=== PATIENT | female | born 1985 | race Caucasian/White ===

== ENCOUNTER 2025-05-16 15:59 | Emergency (ER) | payer OTHER, SELFPAY ==
[2025-05-16 16:01] VITALS: BP 149/78
--- NOTE | 2025-05-16 17:32 | ED.GENMED ---
History of Present Illness
General
Chief Complaint: Abdominal Pain
Source: patient
Exam Limitations: none
Time Seen by Provider: 05/16/25 17:17
Nursing documentation reviewed up to this point in time: agreed with
History of Present Illness
History of Present Illness:
39-year-old female with history of kidney stones presents with left side abdominal pain since this morning. She vomited twice. Denies fever or chills. States pain started in her left flank area.
Past History
Past History
ED Past Medical History: Other (Kidney stone)
ED Past Surgical History: Gynecological
Review of Systems
Review of Systems
Allergies reviewed?: Yes
All Other Systems: ROS reviewed and negative except as documented in HPI and ROS
Phy Exam
Physical Exam
Physical Exam:
GENERAL: Mild distress due to pain A&Ox3.
CONSTITUTIONAL: Afebrile.
EYES: clear, conjunctivae normal
ENMT: moist mucus membranes, Pharynx nl
RESPIRATORY: Regular respirations, nonlabored, lungs clear.
CARDIOVASCULAR: Regular rate and rhythm, no murmurs, no rubs.
GI: Soft, tender left abdomen, normal BS
MUSCULOSKELETAL: Moves with ease. Well perfused.
SKIN: Warm, dry, pink
PSYCH: Normal mood and affect. Well kept, interactive and appropriate
NEUROLOGIC: Awake, alert and oriented. No focal neurological deficits
Course
Orders/Labs/Results
Orders:
Orders
05/16/25 17:18
Test Result ONCE
05/16/25 17:22
Complete Blood Count/With Diff Urgent
Comprehensive Metabolic Panel Urgent
HCG, Serum Qualitative Screen Urgent
Lipase Urgent
05/16/25 17:30
CT Abd/pel Without Iv Or Oral Urgent
Comment:
Reason For Exam: left flank and abd pain
0.9% Sodium Chloride 1000 ml [Nss] 1,000 ml IV BOLUS
05/16/25 18:07
HYDROmorphone [Dilaudid] 0.5 mg IV NOW STA
05/16/25 18:08
Urinalysis Reflex To Culture Urgent
Date Specimen was Collected: 05/16/25
Time Specimen was Collected: 17:24
05/16/25 18:13
Ondansetron Injectable [Zofran] 4 mg IV NOW STA
05/16/25 18:14
Ondansetron Injectable [Zofran] 4 mg .ROUTE .STK-MED ONE
05/16/25 19:31
Ketorolac [Toradol] 15 mg IV NOW STA
Tamsulosin [Flomax] 0.4 mg PO NOW STA
Abnormal Lab Results
05/16/25
17:22
WBC 16.7 H 10^3/uL
(4.8-10.8)
Absolute Neuts (auto) 14.0 H 10^3/uL
(1.4-6.5)
Absolute Monos (auto) 1.0 H 10^3/uL
(0.1-0.6)
Neutrophils % 84.2 H %
(42.2-75.2)
Lymphocytes % 9.1 L %
(20.5-51.1)
Sodium 132 L mmol/L
(135-145)
Carbon Dioxide 20 L mmol/L
(22-30)
Glucose 113 H mg/dl
(70-99)
05/16/25 17:22
05/16/25 17:22
Vital Signs
Initial and Last Documented VS:
Initial Vital Signs
Temp Pulse Resp BP Pulse Ox
97.8 F 70 16 149/78 99
05/16/25 16:01 05/16/25 16:01 05/16/25 16:01 05/16/25 16:01 05/16/25 16:01
Last Documented Vital Signs
Temp Pulse Resp BP Pulse Ox
98.2 F 78 16 131/66 98
05/16/25 19:58 05/16/25 19:58 05/16/25 19:58 05/16/25 19:58 05/16/25 19:58
MDM/Problems Addressed
Differential Diagnosis Includes:
Kidney stone, UTI, pyelonephritis, diverticulitis
MDM/Problems Addressed:
39-year-old female with history of kidney stones presents with left side abdominal pain since this morning. She vomited twice. Denies fever or chills. States pain started in her left flank area.
CBC: WBC 16.7
CMP: No clinically significant abnormality
hCG negative.
UA: No sign of infection
7:30 p.m.
After IVF's, pain medications, feeling much better, Pt states pain is minimal
Stable for discharge
CT abdomen pelvis radiology report read: 5 mm left UPJ stone causing mild hydronephrosis and perinephric stranding.
Rx f for Flomax and hydrocodone sent to her pharmacy
Referred to Urology for F/U
Return instructions reviewed.
Pt is comfortable going home
*Pulse Oximetry
SaO2: 99
Oxygen Mode of Delivery: Room air
Patient hypoxic: not evaluated
*Critical Care Note
Total Time (30-74mins, 75-104mins- exclusive of procedures): Not Applicable
ED Attending Note
-
Portions of this chart may have been created with voice recognition software.� Occasional wrong word or��sound alike� substitutions may have occurred due to the inherent limitations of voice recognition software.
Discharge Plan
Departure
Patient Disposition: Home (Routine Discharge)
Date of Disposition: 05/16/25
Time of Disposition: 19:34
Patient with high blood pressure during this ER visit?: No
Condition: Good
Discharge Problem:
Calculus of distal left ureter
Instructions: Kidney stones in adults - ED (DC)
Prescriptions:
New
tamsulosin 0.4 mg capsule
0.4 mg PO DAILY Qty: 4 0RF
hydrocodone-acetaminophen 5-325 mg tablet
1 tab PO Q6H PRN (Reason: Pain) Qty: 7 0RF
Referrals:
Sandra Ragsdale MD [Active, Urology] - Call in 1-3 days for appt
UNKNOWN - PT DOES,NOT KNOW [Family Provider]
Activity Restrictions/Additional Instructions:
As we discussed, I sent a prescription to your pharmacy for hydrocodone for pain if needed and for Flomax to relax the ureter and help the stone pass easily.
Use ibuprofen 600 mg for mild to moderate pain and if that does not help then use the hydrocodone.
Call the urology office on Sunday morning and ask when they want to see you for follow-up.
Interventions
Interventions:
*Risk Screen - Suicide Last Done: 05/16/25 16:01
*General Assessment Last Done: 05/16/25 16:01
*Neglect/Abuse Screening Last Done: 05/16/25 16:01
[facility] Risk Assessment Tool Last Done: 05/16/25 18:32
*Nursing Disposition Last Done: 05/16/25 19:58
[facility]-Cmqqyu-Ulrhzkbqfp Assessment Last Done: 05/16/25 17:44
Discharge Date and Time
Discharge Date/Time: 05/16/25 20:00
Print Language: CUBAN
[2025-05-16 17:33] LABS: Hematocrit 37.8 % (37.0-47.0); Hemoglobin 13.2 g/dL (12.0-16.0); Mean Corp Hgb Conc. 34.9 g/dL (33.0-37.0); Mean Corpuscular Volume 85.9 fL (81.0-99.0); Nucleated Red Blood Cells % 0 %; Platelet Count 289 10^3/uL (130-400); Red Cell Dist. Width 11.8 % (11.5-14.5)
[2025-05-16] MEDS: NSS 1000 IV (17:34)
[2025-05-16 17:42] LABS: HCG, Serum Qualitative Screen Negative
[2025-05-16 17:49] LABS: ALT (SGPT) 15 U/L (0-35); AST (SGOT) 22 U/L (14-36); Albumin 4.3 g/dl (3.5-5.0); Alkaline Phosphatase 100 U/L (38-126); Blood Urea Nitrogen 13 mg/dl (7-17); Calcium 9.4 mg/dl (8.4-10.2); Carbon Dioxide 20 mmol/L (22-30); Chloride 104 mmol/L (98-107); Glucose 113 mg/dl (70-99); Lipase 68 U/L (23-300); Potassium 4.1 mmol/L (3.5-5.1); Sodium 132 mmol/L (135-145); Total Protein 7.6 g/dl (6.3-8.2); eGFR > 60.00
[2025-05-16] MEDS: DILAUDID 0.5 MG IV (18:11)
[2025-05-16] MEDS: ZOFRAN 4 MG IV (18:14)
[2025-05-16 18:15] LABS: Urine Character Clear (Clear)
[2025-05-16] MEDS: FLOMAX 0.4 MG PO (19:53)
[2025-05-16] MEDS: TORADOL 15 MG IV (19:53)
[2025-05-16 19:58] VITALS: BP 131/66
== END 2025-05-16 20:00 | disposition home or self-care (01) ==
LOC: EMR 15:59
PROVIDERS: Registered Nurse; EMERGENCY PHYSICIAN Student in an Organized Health Care Education/Training Program
DX: N13.2 Hydronephrosis with renal and ureteral calculous obstruction (principal); R11.10 Vomiting, unspecified
CPT/HCPCS: 99284; 96374; 96375; 96361; 74176; 80053; 81003; 83690; 84703; 85025